=== PATIENT | male | born 1960 | race African-American/Black ===

== ENCOUNTER 2016-04-27 15:14 | Observation (INO) | payer OTHER ==
[~2016-04-27] VITALS: Ht 182.9 cm; Wt 117.9 kg
[~2016-04-27 15:14] MED LIST: AMLODIPINE BESY10 MG PO; MIRALAX255 GM PO; PRINIVIL10 MG PO; PROTONIX40 MG PO; SYNTHROID100 MCG PO
[2016-04-27] MEDS ORDERED: BENAZEPRIL HCL40 MG PO (15:29)
[2016-04-27] MEDS ORDERED: ATENOLOL100 MG PO (15:29)
[2016-04-27 15:56] LABS: HEMATOCRIT 42.2 % (38.0-50.0); MCH 34.8 PG (29.0-34.0); MCHC 34.8 G/DL (30.0-36.0); MEAN PLAT.VOLUME 10.4 uM^3 (9.0-12.4); PLATELET COUNT 146 K/uL (156-360); RBC DIS.WIDTH-CV 11.9 % (11.8-14.6); RED BLOOD COUNT 4.22 M/uL (4.00-5.50); WHITE BLOOD COUNT 5.6 K/uL (4.1-10.2)
[2016-04-27 16:05] LABS: CHLORIDE 104 mEq/L (99-109); POTASSIUM 3.9 mEq/L (3.7-5.4); SODIUM 141 mEq/L (136-147)
[2016-04-27 16:08] LABS: GLUCOSE 105 mg/dL (70-99)
[2016-04-27 16:09] LABS: ANION GAP 13 MEQ/L (2-14); TOTAL BILIRUBIN 1.1 mg/dL (0.0-1.0)
[2016-04-27 16:11] LABS: ALKALINE PHOSPHATASE 57 IU/L (3-129); GFR ESTIMATE (CALCULATED) > 59 mL/min/
[2016-04-27 16:12] LABS: UREA NITROGEN (BUN) 10 mg/dL (9-23)
[2016-04-27 16:13] LABS: DIRECT BILIRUBIN 0.4 mg/dL (0.0-0.3)
[2016-04-27 16:15] LABS: LIPASE 25 U/L (1.0-51.0)
[2016-04-27 16:17] LABS: TROP-I INTERPRETATION NEGATIVE; TROPONIN-I 0.03 ng/mL (0.0-0.30)
[2016-04-27 18:33] LABS: TROP-I INTERPRETATION NEGATIVE; TROPONIN-I 0.04 ng/mL (0.0-0.30)
[2016-04-27] MEDS ORDERED: NAPROXEN500 MG PO (18:54)
[2016-04-27] MEDS ORDERED: CIALIS20 MG PO (18:55)
[2016-04-27 21:44] LABS: MAGNESIUM 1.7 mg/dL (1.3-2.7)
[2016-04-27 21:48] VITALS: BP 175/76
[2016-04-28] VITALS: BP 160/80
[2016-04-28 00:59] LABS: TROP-I INTERPRETATION NEGATIVE; TROPONIN-I 0.04 ng/mL (0.0-0.30)
[2016-04-28 04:30] VITALS: BP 172/90
[2016-04-28 06:43] LABS: HEMATOCRIT 39.9 % (38.0-50.0); MCH 34.3 PG (29.0-34.0); MCHC 34.1 G/DL (30.0-36.0); MCV 100.8 FL (86-99); MEAN PLAT.VOLUME 10.4 uM^3 (9.0-12.4); PLATELET COUNT 136 K/uL (156-360); RBC DIS.WIDTH-SD 44.1 % (39-53); RED BLOOD COUNT 3.96 M/uL (4.00-5.50); WHITE BLOOD COUNT 4.8 K/uL (4.1-10.2)
[2016-04-28 06:54] LABS: INTER. NORMALIZED RATIO 1.2; PROTHROMBIN TIME 11.8 (9.2-11.2)
[2016-04-28 07:11] LABS: TROP-I INTERPRETATION NEGATIVE; TROPONIN-I 0.05 ng/mL (0.0-0.30)
[2016-04-28 07:12] LABS: ANION GAP 10 MEQ/L (2-14); CHLORIDE 104 MEQ/L (99-109); GFR ESTIMATE (CALCULATED) > 59 mL/min/; GLUCOSE 94 mg/dL (70-99); SAMPLE HEMOLYSIS CHECK 1; SAMPLE ICTERIC CHECK 0; SAMPLE LIPEMIA CHECK 0; SODIUM 140 MEQ/L (136-147); UREA NITROGEN (BUN) 9 mg/dL (9-23)
[2016-04-28 07:16] LABS: POTASSIUM 3.8 MEQ/L (3.7-5.4)
[2016-04-28 09:25] VITALS: BP 174/80
[2016-04-28 12:10] VITALS: BP 180/98
[2016-04-28] MEDS ORDERED: HYDROCHLOROTH12.5 M3 PO ×2 (12:12→12:29)
[2016-04-28] MEDS ORDERED: HYDRALAZINE HCL25 MG PO (12:29)
[2016-04-28 14:55] VITALS: BP 145/80
== END 2016-04-28 16:32 | disposition home or self-care (01) ==
LOC: EME 15:14 → 5WEST 20:46 → EDOF 20:46 → 5WEST 21:43
PROVIDERS: Emergency Medicine; Internal Medicine
DX: R00.1 Bradycardia, unspecified (principal); T44.7X5A Adverse effect of beta-adrenoreceptor antagonists, initial encounter; R42 Dizziness and giddiness; I10 Essential (primary) hypertension; E03.9 Hypothyroidism, unspecified; F10.20 Alcohol dependence, uncomplicated
CPT/HCPCS: 70450; 71020; 80048; 80076; 81003; 83605; 83690; 83735; 84439; 84443; 84484; 85027; 85610; 93005; 93306; 99281; 99285; G0378; J0360; J7030